=== PATIENT | male | born 1960 | race Caucasian/White ===

== ENCOUNTER 2016-05-01 04:20 | Emergency (ER) | payer OTHER ==
[2016-05-01 04:34] VITALS: BP 157/105; PULSE 90; TEMP 97.8; BMI 26.6
--- NOTE | 2016-05-01 04:37 | PDOC ---
History of Present Illness - General Chief Complaint: Urinary Problem Stated Complaint: UNABLE TO VOID Time Seen by Provider: 05/01/16 04:25 History Source: Patient Exam Limitations: No Limitations - History of Present Illness Initial Comments: 05/01/16 04:33 56 y m htn and "prostate problems" presents to ed c/o pain and difficulty urinating since last night. no hx of prior retention. no fever, chills, n/v. no testicular pain. no penile discharge. in ed, uncomfortable but relieved after torres insertion Past History - Past Medical History Allergies/Adverse Reactions: Allergies Allergy/AdvReac Type Severity Reaction Status Date / Time No Known Allergies Allergy Unverified 05/01/16 04:30 Home Medications: Ambulatory Orders Lisinopril 10 mg PO DAILY 05/01/16 Review of Systems - Review of Systems Able to Perform ROS?: Yes Is the patient limited American proficient: No Constitutional: No: Symptoms Reported Respiratory: No: Symptoms reported Cardiac (ROS): No: Symptoms Reported ABD/GI: No: Symptoms Reported : Yes: Symptoms Reported, See HPI Musculoskeletal: No: Symptoms Reported Integumentary: No: Symptoms Reported Neurological: No: Symptoms reported All Other Systems: Reviewed and Negative *Physical Exam - Physical Exam General Appearance: Yes: Nourished, Appropriately Dressed, Mild Distress HEENT: positive: Normal ENT Inspection Respiratory/Chest: positive: Lungs Clear, Normal Breath Sounds. negative: Respiratory Distress Cardiovascular: positive: Regular Rhythm, Regular Rate Gastrointestinal/Abdominal: positive: Normal Bowel Sounds, Tender (suprapubic area) Male Genitalia: positive: normal genitalia Extremity: positive: Normal Capillary Refill. negative: Pedal Edema Integumentary: positive: Normal Color Neurologic: positive: Fully Oriented, Alert, Normal Mood/Affect, Normal Response , Motor Strength 5/5 *DC/Admit/Observation/Transfer Diagnosis at time of Disposition: Acute urinary obstruction - Discharge Dispostion Disposition: HOME Condition at time of disposition: Improved - Referrals Referrals: Raymundo Allen [Primary Care Provider] - Call tomorrow - Patient Instructions Additional Instructions: KEEP CATHETER UNTIL YOUR UROLOGIST SEES YOU CALL HIM TOMORROW DISCUSSED CONTINUE ALL YOUR MEDICATIONS PRESCRIBED RETURN IF SEVERE PAIN, FEVER, VOMITING
== END 2016-05-01 05:07 | disposition home or self-care (01) ==
LOC: FER 04:20
PROC: 0T9B70Z Drainage of Bladder with Drainage Device, Via Natural or Artificial Opening (ICD-10-PCS; principal; 2016-05-01)
DX: N13.5 Crossing vessel and stricture of ureter without hydronephrosis (principal)
CPT/HCPCS: 99282-25

== ENCOUNTER 2020-09-30 09:11 | Emergency (ER) | payer OTHER ==
[2020-09-30 09:54] VITALS: BP 124/51
[2020-09-30] MEDS ORDERED: ACETAMINOPHEN 325 MG TABLET (FP) PO ONE (10:02)
[2020-09-30] MEDS ORDERED: ACETAMINOPHEN 325 MG TABLET (FP) ONE (10:05)
[2020-09-30 10:17] VITALS: BMI 27.4
[2020-09-30 10:45] VITALS: TEMP 98
[2020-09-30 10:48] VITALS: PULSE 82
[2020-09-30 10:57] LABS: EPITHELIAL CELLS RARE /hpf; URINE HYALINE CAST 0-1 /lpf
== END 2020-09-30 10:48 | disposition home or self-care (01) ==
LOC: FER 09:11
DX: R33.9 Retention of urine, unspecified (principal)
CPT/HCPCS: 81003; 81015; 87086; 99283-25

== ENCOUNTER 2021-01-19 01:59 | Emergency (ER) | payer OTHER ==
[2021-01-19 02:06] VITALS: BP 132/106; PULSE 109; TEMP 97.6; BMI 34.5
== END 2021-01-19 02:29 | disposition home or self-care (01) ==
LOC: FER 01:59
DX: R33.9 Retention of urine, unspecified (principal)
CPT/HCPCS: 99282-25

== ENCOUNTER 2021-03-22 06:45 | Emergency (ER) | payer OTHER ==
[2021-03-22 06:55] VITALS: BMI 34.5
[2021-03-22 07:07] VITALS: BP 116/80; PULSE 86; TEMP 97.9
[2021-03-22 08:40] LABS: EPITHELIAL CELLS RARE /hpf
== END 2021-03-22 08:45 | disposition home or self-care (01) ==
LOC: FER 06:45
DX: N13.9 Obstructive and reflux uropathy, unspecified (principal)
CPT/HCPCS: 81003; 81015; 87086; 99283-25

== ENCOUNTER 2023-10-16 21:35 | Emergency (ER) | payer OTHER ==
[2023-10-16 22:02] VITALS: BP 122/87; PULSE 99; RESP 16; TEMP 97.7; BMI 34.4
== END 2023-10-16 23:28 | disposition home or self-care (01) ==
LOC: FER 21:35
PROC: 0T9B70Z Drainage of Bladder with Drainage Device, Via Natural or Artificial Opening (ICD-10-PCS; principal; 2023-10-16)
DX: R33.9 Retention of urine, unspecified (principal); R14.0 Abdominal distension (gaseous); R10.30 Lower abdominal pain, unspecified
CPT/HCPCS: 81003; 81015; 87086; 99283-25

== ENCOUNTER 2024-04-18 06:53 | Day surgery (SDC) | payer OTHER ==
[2024-03-28 14:24] VITALS: BMI 27.4
[2024-04-18] MEDS ORDERED: PHENYLEPHRINE 2.5% OPTHALMIC DROP 2ML BOTTLE ONE (07:08)
[2024-04-18] MEDS ORDERED: TROPICAMIDE 1% 3 ML EYE DROPS ONE (07:08)
[2024-04-18 07:11] VITALS: RESP 18
[2024-04-18] MEDS: TROPICAMIDE 1% OPHTH SOLN 15 ML BOTTLE OD SCH (07:15)
[2024-04-18] MEDS: KETOROLAC TROMETHAMINE 0.5% EYE DROP 1 DROP DROPS OD SCH (07:15)
[2024-04-18] MEDS: CYCLOPENTOLATE HCL 1% OPHTH SOLN 2 ML BOTTLE OD SCH (07:15)
[2024-04-18] MEDS: PHENYLEPHRINE 2.5% OPHTH SOLN 15 ML BOTTLE OD SCH (07:15)
[2024-04-18] MEDS: OFLOXACIN 0.3% OPHTHALMIC SOLUTION 5 ML BOTTLE OD SCH (07:15)
[2024-04-18] MEDS ORDERED: NEO/POLYMYX B SULF/DEXAMETH OPHTHALMIC 5ML BOTTLE ONE (07:39)
[2024-04-18] MEDS ORDERED: BACITRACIN/POLYMYXIN OPH OINT 3.5 GM TUBE ONE (07:39)
[2024-04-18] MEDS ORDERED: TETRACAINE 0.5% OPHTH SOLN 2 ML BOTTLE ONE (07:39)
[2024-04-18] MEDS ORDERED: EPINEPHrine 1:1000 P/F - 1 MG/ML AMP ONE (07:39)
[2024-04-18] MEDS ORDERED: POVIDONE-IODINE 5% OPHTHALMIC PREP 30 ML SOLUTION ONE (07:39)
[2024-04-18] MEDS ORDERED: BETAXOLOL HCL 0.25% OPHTHALMIC 10 ML DROPSBTL ONE (07:39)
[2024-04-18] MEDS ORDERED: EPI-SHUGARCAINE (EPINEPHRINE 0.025% & LIDOCAINE-PF 0.75%) 4ML ONE (07:39)
[2024-04-18] MEDS ORDERED: BSS (NA/CA/MG/K) BALANCED SALT SOLUTION OPHTH SOLN 15 ML BOTTLE ONE (07:39)
[2024-04-18] MEDS ORDERED: ONDANSETRON 4 MG/2 ML VIAL ONE (08:24)
[2024-04-18] MEDS ORDERED: MIDAZOLAM HCL 2 MG/2 ML SINGLE DOSE VIAL ONE (08:24)
[2024-04-18] MEDS ORDERED: DEXAMETHASONE SOD PHOSPHATE 4 MG/1 ML VIAL ONE (08:24)
[2024-04-18] MEDS ORDERED: ACETAMINOPHEN 325 MG TABLET (FP) PO PRN (09:05)
[2024-04-18 10:18] VITALS: TEMP 97.4
[2024-04-18 10:44] VITALS: BP 136/84; PULSE 78
== END 2024-04-18 10:42 | disposition home or self-care (01) ==
LOC: FASU 06:53
PROVIDERS: ATTEND Ophthalmology
PROC: 08RJ3JZ Replacement of Right Lens with Synthetic Substitute, Percutaneous Approach (ICD-10-PCS; principal; 2024-04-18 09:41)
DX: H25.89 Other age-related cataract (principal)
CPT/HCPCS: 66984; V2632

== ENCOUNTER 2024-06-14 09:33 | Emergency (ER) | payer MEDICARE, OTHER ==
[2024-06-14 10:06] VITALS: BP 159/103; PULSE 85; RESP 18; TEMP 98.6; BMI 20.8
[2024-06-14] MEDS ORDERED: DIPHTH,PERTUSS(ACELL),TET 0.5 ML DISP.SYRIN IM ONE (10:42)
[2024-06-14] MEDS: DIPHTH,PERTUSS(ACELL),TET 0.5 ML DISP.SYRIN IM ONE (10:45)
== END 2024-06-14 10:53 | disposition home or self-care (01) ==
LOC: FER 09:33
PROC: 0HQFXZZ Repair Right Hand Skin, External Approach (ICD-10-PCS; principal; 2024-06-14)
PROC: 3E0234Z Introduction of Serum, Toxoid and Vaccine into Muscle, Percutaneous Approach (ICD-10-PCS; 2024-06-14)
DX: S61.214A Laceration without foreign body of right ring finger without damage to nail, initial encounter (principal); Z23 Encounter for immunization; W26.0XXA Contact with knife, initial encounter; Y99.0 Civilian activity done for income or pay
CPT/HCPCS: 12001-25; 90471; 90715; 99284-25